=== PATIENT | male | born 1970 | race Caucasian/White ===

== ENCOUNTER 2020-01-05 15:47 | Emergency (ER) | payer SELFPAY ==
[2020-01-05] MEDS ORDERED: Sodium Chloride 0.9% 10 ML Syringe FLUSH PRN (16:03)
[2020-01-05] MEDS ORDERED: Aspirin 81 MG Tab.Chew PO ONE (16:03)
[2020-01-05] MEDS ORDERED: Sodium Chloride 0.9% 2.5 ML Syringe FLUSH PRN ×2 (16:03)
--- NOTE | 2020-01-05 16:18 | EDM.PDOC ---
ED HPI GENERAL MEDICAL PROBLEM - General Chief Complaint: Upper Extremity Injury/Pain Stated Complaint: LOST FEELING IN FINGER Time Seen by Provider: 01/05/20 15:57 - History of Present Illness INITIAL COMMENTS - FREE TEXT/NARRATIVE: History of present illness: Patient presents with pain in his right little finger with coldness and numbness. This is been going on for 3 days no history of smoking no history of prior episodes of this but he is a diabetic. No other fingers are affected he denies any palpitations there is been no fever chills difficulty breathing or cough nothing seems to make it better or worse Review of systems: As per history of present illness and below otherwise all systems reviewed and negative. Past medical history: As per history of present illness and as reviewed below otherwise noncontribu tory. Surgical history: As per history of present illness and as reviewed below otherwise noncontributory. Social history: No reported history of drug or alcohol abuse. Family history: As per history of present illness and as reviewed below otherwise noncontributory. Physical exam: HEENT: Atraumatic, normocephalic, pupils reactive, negative for conjunctival pallor or scleral icterus, mucous membranes moist, throat clear, neck supple, nontender, trachea midline. Lungs: Clear to auscultation, breath sounds equal bilaterally, chest nontender. Heart: S1S2, regular, negative for clicks, rubs, or JVD. Abdomen: Soft, nondistended, nontender. Negative for masses or hepatosplenomegaly. Negative for costovertebral tenderness. Pelvis: Stable nontender. Genitourinary: Deferred. Rectal: Deferred. Extremities: Atraumatic, negative for cords or calf pain. Neurovascular unremarkable. The right fifth digit is cool to touch pallorous there is no capillary refill it appears to not be vascularized. Neuro: Awake, alert, oriented. Cranial nerves II through XII unremarkable. Cerebellum unremarkable. Motor and sensory unremarkable throughout. Exam nonfocal. 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 R pinky and palm Pain Score (Numeric/FACES): 5 - Related Data Allergies Allergy/AdvReac Type Severity Reaction Status Date / Time No Known Allergies Allergy Verified 01/05/20 15:57 Home Meds: Home Meds Empagliflozin [Jardiance] 25 mg PO DAILY 01/05/20 [History] lisinopriL [Lisinopril] 40 mg PO DAILY 01/05/20 [History] metFORMIN [Glucophage] 1,000 mg PO DAILY 01/05/20 [History] Past Medical History Endocrine/Metabolic History: Reports: Diabetes, Type II Social & Family History - Family History Family Medical History: Noncontributory - Caffeine Use Caffeine Use: Reports: Coffee, Soda - Recreational Drug Use Recreational Drug Use: No Review of Systems - Review of Systems Review Of Systems: See Below ED EXAM, GENERAL - Physical Exam Exam: See Below EKG INTERPRETATION EKG Interpretation Comments: EKG is normal sinus rhythm rate [address]-T changes no art ischemia read and interpreted by me Course - Vital Signs Text/Narrative:: I discussed case at [address] Blanchard vascular surgery at [place] she recommends he be transferred to the ED placed on a heparin drip prior to arrival. At [address] Bowie will accept the patient in the ED. Last Recorded V/S: Last Vital Signs Temp 36.4 C 01/05/20 15:58 Pulse 87 01/05/20 15:58 Resp 20 01/05/20 15:58 BP 139/80 01/05/20 15:58 Pulse Ox 97 01/05/20 15:58 - Orders/Labs/Meds Orders: Active Orders 24 hr Category Date Time Status EKG Documentation Completion [RC] STAT Care 01/05/20 16:04 Active CBC WITH AUTO DIFF [HEME] Stat Lab 01/05/20 16:12 Received COMPREHENSIVE METABOLIC PN,CMP [CHEM] Stat Lab 01/05/20 16:12 Received INR,PT,PROTHROMBIN TIME [COAG] Stat Lab 01/05/20 16:12 Received PTT,PARTIAL THROMBOPLSTIN TIME [COAG] Stat Lab 01/05/20 16:29 Ordered Heparin Sod,Pork In 0.45% Nacl [Heparin-1/2Ns 25,000 Med 01/05/20 16:30 Active Units/500] 25,000 unit in 500 ml IV TITRATE Sodium Chloride 0.9% [Saline Flush] Med 01/05/20 16:03 Active 10 ml FLUSH ASDIRECTED PRN Sodium Chloride 0.9% [Saline Flush] Med 01/05/20 16:03 Active 2.5 ml FLUSH ASDIRECTED PRN Sodium Chloride 0.9% [Saline Flush] Med 01/05/20 16:03 Active 2.5 ml FLUSH ASDIRECTED PRN Saline Lock Insert [OM.PC] Stat Oth 01/05/20 16:03 Ordered Medication Orders Heparin Sodium (Porcine) (Heparin Sodium) 5,000 units IVPUSH ONETIME ONE Stop: 01/05/20 16:30 Heparin Sodium/Sodium Chloride (Heparin-1/2ns 25,000 Units/500) 25,000 unit in 500 mls @ 34.019 mls/hr IV TITRATE KELL; Protocol Sodium Chloride (Saline Flush) 2.5 ml FLUSH ASDIRECTED PRN PRN Reason: Keep Vein Open Sodium Chloride (Saline Flush) 10 ml FLUSH ASDIRECTED PRN PRN Reason: Keep Vein Open Sodium Chloride (Saline Flush) 2.5 ml FLUSH ASDIRECTED PRN PRN Reason: Keep Vein Open Meds: Medications Generic Name Dose Route Start Last Admin Trade Name Freq PRN Reason Stop Dose Admin Heparin Sodium (Porcine) 5,000 units 01/05/20 16:29 Heparin Sodium IVPUSH 01/05/20 16:30 ONETIME ONE Heparin Sodium/Sodium Chloride 25,000 unit in 500 mls @ 34.019 mls/hr 01/05/20 16:30 Heparin-1/2ns 25,000 Units/500 IV TITRATE KELL Protocol 15 UNITS/KG/HR Sodium Chloride 2.5 ml 01/05/20 16:03 Saline Flush FLUSH ASDIRECTED PRN Keep Vein Open Sodium Chloride 10 ml 01/05/20 16:03 Saline Flush FLUSH ASDIRECTED PRN Keep Vein Open Sodium Chloride 2.5 ml 01/05/20 16:03 Saline Flush FLUSH ASDIRECTED PRN Keep Vein Open Discontinued Medications Generic Name Dose Route Start Last Admin Trade Name Freq PRN Reason Stop Dose Admin Aspirin 324 mg 01/05/20 16:03 01/05/20 16:12 Aspirin PO 01/05/20 16:04 324 mg ONETIME ONE Administration Departure - Departure Time of Disposition: 16:32 Disposition: DC/Tfer to Acute Hospital 02 Condition: Fair Clinical Impression: Vascular occlusion - Discharge Information *PRESCRIPTION DRUG MONITORING PROGRAM REVIEWED*: Not Applicable *COPY OF PRESCRIPTION DRUG MONITORING REPORT IN PATIENT MITCH: Not Applicable Referrals: PCP,Not In Area [Primary Care Provider] - Forms: ED Department Discharge Sepsis Event Note (ED) - Evaluation Sepsis Screening Result: No Definite Risk - Focused Exam Vital Signs: Vital Signs Temp Pulse Resp BP Pulse Ox 01/05/20 15:58 36.4 C 87 20 139/80 97 - My Orders Last 24 Hours: My Active Orders 01/05/20 16:03 Sodium Chloride 0.9% [Saline Flush] 10 ml FLUSH ASDIRECTED PRN Sodium Chloride 0.9% [Saline Flush] 2.5 ml FLUSH ASDIRECTED PRN Sodium Chloride 0.9% [Saline Flush] 2.5 ml FLUSH ASDIRECTED PRN Saline Lock Insert [OM.PC] Stat 01/05/20 16:04 EKG Documentation Completion [RC] STAT 01/05/20 16:12 CBC WITH AUTO DIFF [HEME] Stat COMPREHENSIVE METABOLIC PN,CMP [CHEM] Stat INR,PT,PROTHROMBIN TIME [COAG] Stat 01/05/20 16:29 PTT,PARTIAL THROMBOPLSTIN TIME [COAG] Stat 01/05/20 16:30 Heparin Sod,Pork In 0.45% Nacl [Heparin-1/2Ns 25,000 Units/500] 25,000 unit in 500 ml IV TITRATE - Assessment/Plan Last 24 Hours: My Active Orders 01/05/20 16:03 Sodium Chloride 0.9% [Saline Flush] 10 ml FLUSH ASDIRECTED PRN Sodium Chloride 0.9% [Saline Flush] 2.5 ml FLUSH ASDIRECTED PRN Sodium Chloride 0.9% [Saline Flush] 2.5 ml FLUSH ASDIRECTED PRN Saline Lock Insert [OM.PC] Stat 01/05/20 16:04 EKG Documentation Completion [RC] STAT 01/05/20 16:12 CBC WITH AUTO DIFF [HEME] Stat COMPREHENSIVE METABOLIC PN,CMP [CHEM] Stat INR,PT,PROTHROMBIN TIME [COAG] Stat 01/05/20 16:29 PTT,PARTIAL THROMBOPLSTIN TIME [COAG] Stat 01/05/20 16:30 Heparin Sod,Pork In 0.45% Nacl [Heparin-1/2Ns 25,000 Units/500] 25,000 unit in 500 ml IV TITRATE
[2020-01-05] MEDS ORDERED: Heparin Sodium 5,000 Units/ML Vial IVPUSH ONE (16:29)
[2020-01-05] MEDS ORDERED: Heparin Sod,Pork In 0.45% Nacl 25,000 UNIT/500 ML IV.SOLN IV SCH (16:30)
[2020-01-05 16:48] LABS: BLOOD UREA NITROGEN,BUN 10 mg/dL (7.0-18.0); CARBON DIOXIDE,CO2 24.9 mmol/L (21.0-32.0); CHLORIDE,CL 101 mmol/L (98-107); GLUCOSE RANDOM 371 mg/dL (74-106); POTASSIUM,K 3.8 mmol/L (3.5-5.1); SODIUM,NA 136 mmol/L (136-148)
== END 2020-01-05 17:57 ==
LOC: MW.ED 15:47
DX: I99.8 Other disorder of circulatory system (principal); E11.9 Type 2 diabetes mellitus without complications; Z79.84 Long term (current) use of oral hypoglycemic drugs; Z79.899 Other long term (current) drug therapy
CPT/HCPCS: 36415; 80053; 85025; 85610; 85652; 85730; 86140; 93005; 96365; 96376; 99285; A9270; J1644; 99283